=== PATIENT | female | born 1955 | race Caucasian/White ===

== ENCOUNTER → 2025-01-15 | Outpatient (CLI) | payer MEDICARE | LOC: M WHC 14:41 | PROVIDERS: ATTEND Surgery | DX: N63.22 Unspecified lump in the left breast, upper inner quadrant (principal) | CPT/HCPCS: 76641; 77066; G0279 ==

== ENCOUNTER → 2025-01-24 | Outpatient (CLI) | payer BC, MEDICARE ==
[2025-01-24 11:15] VITALS: TEMP 98.2
[2025-01-24 12:16] VITALS: BP 146/90; O2SAT 97
== END ==
LOC: M WHCPRO 10:28
PROVIDERS: ATTEND Surgery
DX: C50.212 Malignant neoplasm of upper-inner quadrant of left female breast (principal); N63.22 Unspecified lump in the left breast, upper inner quadrant

== ENCOUNTER → 2025-03-06 | Outpatient (CLI) | payer MEDICARE, OTHER ==
[~2025-03-06] MED LIST: PROHANCE 279.3MG/ML 15ML VIAL As Ordered ONE; VERA240C PO
== END ==
LOC: M RAD 13:03
PROVIDERS: ATTEND Surgery
DX: C50.212 Malignant neoplasm of upper-inner quadrant of left female breast (principal)
CPT/HCPCS: 75809; A9579; C8908